=== PATIENT | male | born 1980 | race Caucasian/White ===

== ENCOUNTER 2023-02-04 07:16 | Outpatient (CLI) | payer OTHER, SELFPAY ==
--- NOTE | ~2023-02-04 | US_ITS ---
US right upper quadrant INDICATION: Elevated liver enzymes PROCEDURE: Realtime right upper abdominal ultrasound. COMPARISON: No prior studies for comparison. FINDINGS: The pancreas is normal without focal mass or pancreatic ductal dilation. Liver echotexture is increased, consistent with fatty infiltration. There is normal directional flow in the portal ve in. The gallbladder is normal without stones, gallbladder wall thickening or pericholecystic fluid. Comm on bile duct measures 3 mm. No sonographic Higgins's sign. Spleen is unremarkable measuring 10.8 cm. IMPRESSION: 1: Hepatic steatosis. Reviewed, dictated and finalized at location L. IMPRESSION: 1: Hepatic steatosis.
== END 2023-02-04 07:17 | disposition home or self-care (01) ==
LOC: CHSIMG 07:18
PROVIDERS: PCP Internal Medicine; Visit Provider Internal Medicine
DX: R74.01 Elevation of levels of liver transaminase levels (principal); K76.0 Fatty (change of) liver, not elsewhere classified
CPT/HCPCS: 76705

== ENCOUNTER 2023-02-05 10:52 | Outpatient (RCR) | payer OTHER, SELFPAY ==
--- NOTE | 2023-02-05 11:43 | PTOPEVAL1 ---
Assessment and note entered by JT File, PT Evaluation Information Assessment Status Evaluation Diagnosis cervical radiculopathy C7 L side Onset 02/02/23 Subjective Information patient reports he has had neck pain and tightness on the L side in the past that last for only a few days. however, this time around it is increased, lasting longer, and is now involving his L hand (index and middle finger). he reports no specific injury, and no change in activities. he reports the arm and hand symptoms will feel like tingling/numbness. he reports he has increased pain and symptoms at times with sitting, driving, and letting the arm hang down by his side. he also reports turning the head away from the L side and looking down will cause increased mm tightness and L UE symptoms. he reports looking over his L shoulder is also problematic/ symptomatic. Reported Pain Level Pain Score 1: Self Report Assessment PT Clinical Summary mr. wright is a 42 yo man who presents to skilled PT services for evaluation and treatment of L sided neck and L UE pain. he presents this date with signs and symptoms consistent with referring diagnosis of L C7 cervical radiculopathy. he presents with decreased rom, decreased mm strength , and radicular nerve symptoms in the L UE. he would benefit from continued skilled PT to improve his objective/functional deficits and return to prior level functional activity performance/ quality of life. Plan of Care Interventions Electrical Stimulation,Hot Pack/Cold Pack,Manual Therapy,Mechanical Traction,Neuro Re-education, Patient/Caregiver Educati,Therapeutic Activities, Therapeutic Exercise PT Services Indicated Yes Treatment Frequency and 2x weekly for 10 visits Duration These treatments will address the objective and functional deficits as defined above. The patient will be advanced safely and appropriately in order for the patient to progress towards his/her prior level of function. Additional exercises will be introduced and as well as a comprehensive home exercise program upon discharge, if needed, ?to ensure carryover of functional gains achieved in the clinic. This treatment plan has been reviewed and agreement upon by the patient.
== END 2023-02-19 13:44 | disposition home or self-care (01) ==
LOC: CHSPT 10:52
PROVIDERS: PCP Internal Medicine; Visit Provider Internal Medicine
DX: M54.12 Radiculopathy, cervical region (principal)
CPT/HCPCS: 97012; 97110; 97140; 97150; 97161

== ENCOUNTER 2023-04-28 07:25 | Outpatient (CLI) | payer OTHER, SELFPAY ==
--- NOTE | ~2023-04-28 | US_ITS ---
Limited Abdominal Sonogram: Real-time sonographic imaging of the right upper quadrant and spleen was performed. Clinical History: Fatty liver, thrombocytopenia Findings: The liver appears echogenic, with no evidence of mass lesion or bile duct dilatation. Main portal vein demonstrates normal direction of flow. The gallbladder is well distended, and appears no rmal with no evidence of gallstone or wall thickening. The common bile duct measures 5 mm. The visua lized pancreas, aorta, and IVC are unremarkable. Spleen measures 10 cm in length. Impression: Diffuse fatty infiltration of the liver. Reviewed, dictated and finalized at location M. Impression: Diffuse fatty infiltration of the liver.
== END 2023-04-28 07:26 | disposition home or self-care (01) ==
LOC: CHSIMG 07:26
PROVIDERS: PCP Internal Medicine; Visit Provider Internal Medicine
DX: K76.0 Fatty (change of) liver, not elsewhere classified (principal); D69.59 Other secondary thrombocytopenia
CPT/HCPCS: 76705

== ENCOUNTER 2023-05-10 09:51 | Outpatient (CLI) | payer OTHER, SELFPAY ==
--- NOTE | 2023-05-10 09:57 | EST_ITS ---
Patient Info Name: Jorge Luis Fonseca Age: 42 years : 1980 Gender: Male Ht: 68 in Wt: 199 lbs BSA: 2.11 m2 Heart Rhythm: Sinus Rhythm Technical Quality: Good Exam Date: 05/10/2023 10:28 AM Exam Location: [facility] Patient Status: Outpatient Admit Date: 05/10/2023 Staff Ordering Physician: Edwar Gan MD Attending Provider: Edwar Gan MD Exam Type: CA stress test treadmill Study Info A treadmill exercise stress test was performed. Summary 1. 1. Negative Guero exercise stress test for ischemic ST changes by ECG criteria. 2. 2. Good functional capacity, achieving 10 METs of workload. 3. 3. Appropriate HR response to exercise. 4. 4. Appropriate HR recovery at 1 minute post exercise. 5. 5. No imaging with stress testing. Protocol: Guero Stress ECG Details Stage: REST Duration (min): 1 min : 9 sec Speed (mph): 0.0 Grade (%): 0 HR (bpm): 95 SBP (mmHg): 120 DBP (mmHg): 60 METS: --- Stage: REST Duration (min): 2 min : 29 sec Speed (mph): 0.0 Grade (%): 0 HR (bpm): 112 SBP (mmHg): 120 DBP (mmHg): 60 METS: --- Stage: STAGE 1 Duration (min): 1 min : 0 sec Speed (mph): 1.7 Grade (%): 10 HR (bpm): 127 SBP (mmHg): 120 DBP (mmHg): 60 METS: --- Stage: STAGE 1 Duration (min): 2 min : 0 sec Speed (mph): 1.7 Grade (%): 10 HR (bpm): 140 SBP (mmHg): 120 DBP (mmHg): 60 METS: --- Stage: STAGE 1 Duration (min): 3 min : 0 sec Speed (mph): 1.7 Grade (%): 10 HR (bpm): 143 SBP (mmHg): 145 DBP (mmHg): 63 METS: --- Stage: STAGE 2 Duration (min): 1 min : 0 sec Speed (mph): 2.5 Grade (%): 12 HR (bpm): 146 SBP (mmHg): 145 DBP (mmHg): 63 METS: --- Stage: STAGE 2 Duration (min): 2 min : 0 sec Speed (mph): 2.5 Grade (%): 12 HR (bpm): 151 SBP (mmHg): 145 DBP (mmHg): 63 METS: --- Stage: STAGE 2 Duration (min): 3 min : 0 sec Speed (mph): 2.5 Grade (%): 12 HR (bpm): 157 SBP (mmHg): 173 DBP (mmHg): 74 METS: --- Stage: STAGE 3 Duration (min): 1 min : 0 sec Speed (mph): 3.4 Grade (%): 14 HR (bpm): 163 SBP (mmHg): 173 DBP (mmHg): 74 METS: --- Stage: STAGE 3 Duration (min): 2 min : 0 sec Speed (mph): 3.4 Grade (%): 14 HR (bpm): 171 SBP (mmHg): 173 DBP (mmHg): 74 METS: --- Stage: STAGE 3 Duration (min): 2 min : 0 sec Speed (mph): 3.4 Grade (%): 14 HR (bpm): 171 SBP (mmHg): 173 DBP (mmHg): 74 METS: --- Stage: RECOVERY Duration (min): 0 min : 59 sec Speed (mph): 0.0 Grade (%): 0 HR (bpm): 163 SBP (mmHg): 147 DBP (mmHg): 69 METS: --- Stage: RECOVERY Duration (min): 1 min : 59 sec Speed (mph): 0.0 Grade (%): 0 HR (bpm): 149 SBP (mmHg): 147 DBP (mmHg): 69 METS: --- Stage: RECOVERY Duration (min): 2 min : 59 sec Speed (mph): 0.0 Grade (%): 0 HR (bpm): 135 SBP (mmHg): 147 DBP (m
== END 2023-05-10 09:52 | disposition home or self-care (01) ==
LOC: CHSCARD 09:52
PROVIDERS: PCP Internal Medicine; Visit Provider Internal Medicine
DX: R94.31 Abnormal electrocardiogram [ECG] [EKG] (principal)
CPT/HCPCS: 93017

== ENCOUNTER 2023-10-22 11:23 | Outpatient (CLI) | payer OTHER, SELFPAY ==
--- NOTE | ~2023-10-22 | XR_ITS ---
EXAMINATION: XR_[id number]_CR DATE: 10/22/2023 11:39 INDICATION: Cervical radiculopathy. TECHNIQUE: 3 views of cervical spine were obtained. COMPARISON: None. FINDINGS: There is mild kyphosis of cervical spine. There is 10 degrees dextroscoliosis of cervical s pine. Vertebral body heights are normal. There is mildly decreased disc height at C5-C6 and C6-C7. Th ere is multilevel facet joint osteoarthritis, severe on the left at C5-C6 and C6-C7. There is mild ce ntral canal stenosis at C5-C6 and C6-C7. No prevertebral soft tissue swelling. IMPRESSION: 1. Mild cervical spondylosis. 2. Cervical dextroscoliosis. Reviewed, dictated and finalized at location E. INE MOLDER
== END 2023-10-22 11:24 | disposition home or self-care (01) ==
LOC: CHSIMG 11:24
PROVIDERS: PCP Internal Medicine; Visit Provider Internal Medicine
DX: M54.12 Radiculopathy, cervical region (principal); M43.02 Spondylolysis, cervical region; M41.82 Other forms of scoliosis, cervical region
CPT/HCPCS: 72040

== ENCOUNTER 2023-10-28 10:45 | Outpatient (CLI) | payer OTHER, SELFPAY ==
--- NOTE | ~2023-10-28 | MR_ITS ---
MRI of the cervical spine Clinical History: Radiculopathy Technique: Axial T2-weighted and gradient images, and sagittal T1-weighted, T2-weighted, and STIR juan ges were acquired. Findings: There is no fracture or subluxation of the cervical spine. Vertebral bodies maintain normal height and alignment. No suspicious bone marrow signal abnormality seen. At C2-C3, there is no significant disc bulge or herniation. No spinal canal stenosis, cord compressio n, or neural foraminal narrowing. At C3-C4, there is mild disc osteophyte complex. No spinal canal stenosis, cord compression, or right neural foraminal narrowing. There is mild left neural foraminal narrowing. At C4-C5, there is no disc bulge or herniation. No spinal canal stenosis, cord compression, or right neural foraminal narrowing. There is mild left neural foraminal narrowing with probable left facet ar thropathy. At C5-C6, there is minimal disc osteophyte complex. No spinal canal stenosis, cord compression, or ri ght neural foraminal narrowing. There is minimal left neural foraminal narrowing with left facet arth ropathy. At C6-C7, there is no significant disc bulge or herniation. No spinal canal stenosis, cord compressio n, or definite neural foraminal narrowing. No abnormal signal seen in the spinal cord. Paravertebral soft tissues are unremarkable. Impression: Mild degenerative spondylosis, as above. Reviewed, dictated and finalized at [facility]. F ANALYTICS OFFICER Impression: Mild degenerative spondylosis, as above.
== END 2023-10-28 10:46 | disposition home or self-care (01) ==
LOC: CHSIMG 10:46
PROVIDERS: PCP Internal Medicine; Visit Provider Internal Medicine
DX: M54.12 Radiculopathy, cervical region (principal); M43.02 Spondylolysis, cervical region
CPT/HCPCS: 72141

== ENCOUNTER 2025-07-02 12:55 | Outpatient (RCR) | payer OTHER, SELFPAY ==
--- NOTE | 2025-07-02 13:41 | OPREHPOC ---
Outpatient Therapy Plan of Care This is a Multidisciplinary Plan of Care that may contain components documented by all disciplines (PT, OT, and ST.) PT Problem 1 PT Problem #1 Knowledge Deficit PT Goal 1 Goal / Goal Update independent and compliant with HEP Target Visit 6 PT Problem 2 PT Problem #2 Pain PT Goal 1 Goal / Goal Update decrease pain at worst to 3/10 or less in the L neck Target Visit 12 PT Problem 3 PT Problem #3 Impaired Range of Motion PT Goal 1 Goal / Goal Update L cervical side bending to 30 degrees L cervical rotation to 65 degrees cervical extension to 45 degrees Target Visit 12 PT Problem 4 PT Problem #4 Impaired Functional Mobility PT Goal 1 Goal / Goal Update patient to report no L UE paresthesias NDI to display 10% or less functional deficits Target Visit 12
--- NOTE | 2025-07-02 13:41 | PTOPEVAL1 ---
Assessment and note entered by JT File, PT Evaluation Information Assessment Status Evaluation ICD-10 Condition Codes (PT) Cervicalgia M54.2,Radiculopathy, cervical M54.13 Onset 06/21/25 Subjective Information patient reports he is having a pinched nerve in the neck on the L side. he reports it goes down the back of the arm to his index and long finger. he reports the symptoms are constant. he reports he has tried injected and oral steroids, but with no relief. he reports he has increased pain and symptoms with head movements to the L side and looking up. he reports there is no activity or position that brings him relief at this time. he reports he has an MRI scheduled in 10 days. he reports he has had no falls or traumatic injury. Reported Pain Level Pain Score 9: Self Report Assessment PT Clinical Summary mr. wright is a pleasant 44 yo man who presents to skilled PT services for evaluation and treatment of acute onset cervical spine pain and radiculopathy. he presents with deficits in L side bending, L rotation, and nerve like symptoms into the L UE down to the index and long finger of the L hand. continued skilled PT is indicated to improve his objective/functional deficits and return to his prior level functional activity performance/quality of life. Plan of Care Interventions Electrical Stimulation,Hot Pack/Cold Pack,Manual Therapy,Mechanical Traction,Neuro Re-education, Patient/Caregiver Education,Therapeutic Activities ,Therapeutic Exercise PT Services Indicated Yes Treatment Frequency and 3x weekly for 12 visits Duration These treatments will address the objective and functional deficits as defined above. The patient will be advanced safely and appropriately in order for the patient to progress towards his/her prior level of function. Additional exercises will be introduced and as well as a comprehensive home exercise program upon discharge, if needed, ?to ensure carryover of functional gains achieved in the clinic. This treatment plan has been reviewed and agreement upon by the patient.
== END 2025-07-18 20:00 | disposition home or self-care (01) ==
LOC: CHSPT 12:55
PROVIDERS: PCP Internal Medicine; Visit Provider Internal Medicine
DX: M54.12 Radiculopathy, cervical region (principal); M54.13 Radiculopathy, cervicothoracic region; M54.2 Cervicalgia
CPT/HCPCS: 97012; 97014; 97110; 97140; 97161; G0283

== ENCOUNTER 2025-07-12 15:39 | Outpatient (CLI) | payer OTHER, SELFPAY ==
--- NOTE | ~2025-07-12 | MR_ITS ---
EXAMINATION: MR cervical spine wo con DATE: 07/12/2025 16:57 INDICATION: Cervical radiculopathy. TECHNIQUE: Magnetic resonance imaging (MRI) of the cervical spine was performed without intravenous contrast. Sequences included sagittal T2-weighted FSE, sagittal T2-weighted FS FSE, sagittal T1-weighted FSE, axial MERGE, and axial T2-weighted FSE. COMPARISON: Cervical spine MRI 10/28/2023 FINDINGS: There is kyphosis of cervical spine. Vertebral body heights are normal. There is mildly decreased disc height at C3-C4, C5-C6, and C6-C7. The spinal cord signal intensity is normal. The following disc levels are specifically discussed: C2-C3: The disc does not extend beyond the endplate margin. There is no uncovertebral joint osteoarthritis. There is severe bilateral facet joint osteoarthritis. There is mild left neural foraminal stenosis. There is no central canal stenosis. C3-C4: The disc is bulging. There is mild right and severe left uncovertebral joint osteoarthritis. There is severe bilateral facet joint osteoarthritis. There is mild right and moderate left neural foraminal stenosis. There is mild central canal stenosis. C4-C5: The disc does not extend beyond the endplate margin. There is mild bilateral uncovertebral joint osteoarthritis. There is moderate right and severe left facet joint osteoarthritis. There is mild left neural foraminal stenosis. There is no central canal stenosis. C5-C6: The disc is bulging. There is severe bilateral uncovertebral joint osteoarthritis. There is moderate right and severe left facet joint osteoarthritis. There is mild bilateral neural foraminal stenosis. There is mild central canal stenosis. C6-C7: The disc is bulging and has an annular fissure. There is moderate right and severe left uncovertebral joint osteoarthritis. There is moderate bilateral facet joint osteoarthritis. There is mild right and moderate left neural foraminal stenosis. There is mild central canal stenosis. C7-T1: There is a central protrusion. There is no uncovertebral joint osteoarthritis. There is severe bilateral facet joint osteoarthritis. There is mild bilateral neural foraminal stenosis. There is no central canal stenosis. IMPRESSION: 1. Moderate cervical spondylosis, stable from 10/28/2023. Reviewed, dictated and finalized at location E.
--- OUTSIDE RECORDS SUMMARY | 2025-07-12 17:40 | XMS_ITS | Clinical Summary ---
Author Organization [facility] Lisa Burciaga Address [address] [place] [address] Care Team Providers Care Academy Education Director Name Role Phone Edwar Gan MD Primary Care Provider + Allergies No known active allergies Medications losartan-hydroCH LOROthiazide (HYZAAR) 50-12.5 mg tablet Take 1 Tablet by mouth daily. Active amLODIPine (NORVASC) 10 mg tablet Take 10 mg by mouth daily. Active rosuvastatin (CRESTOR) 10 mg tablet Take 10 mg by mouth daily. Active potassium chloride (KLOR-CON) 10 mEq Extended Release tablet Take 10 mEq by mouth daily with breakfast. Active cyanocobalamin (VITAMIN B-12) 100 mcg tablet Take 100 mcg by mouth daily. Active Active Problems No known active problems Family History Medical History Relation Name Comments Diabetes Father Heart Disease Father Lung Cancer Father Heart Disease Mother No Known Problems Sister No Known Problems Son Relation Name Status Comments Father Alive Mother Alive Sister Alive Son Alive Social History Tobacco Use Types Packs/Day Years Used Date Smoking Tobacco: Never Smokeless Tobacco: Never Sex and Gender Information Value Date Recorded Sex Assigned at Not on file Legal Sex Male 10:57 AM CDT Gender Identity Not on file Sexual Orientation Not on file Last Filed Vital Signs Vital Sign Reading Time Taken Comments Blood Pressure 136/86 06/29/2023 3:25 PM CDT Pulse 88 06/29/2023 3:20 PM CDT Temperature 36.9 C (98.5 F) 06/29/2023 3:20 PM CDT Respiratory Rate 16 06/29/2023 3:20 PM CDT Oxygen Saturation 98% 06/29/2023 3:20 PM CDT Inhaled Oxygen Concentration - - Weight 85.2 kg (187 lb 12.8 oz) 06/29/2023 3:20 PM CDT Height 175.3 cm (5' 9) 06/29/2023 3:20 PM CDT Body Mass Index 27.73 06/29/2023 3:20 PM CDT Plan of Treatment Health Maintenance Due Date Last Done Comments DTAP/TDAP/TD VACCINES (1 - Tdap) 1997 HEPATITIS B VACCINES (1 of 3 - 19+ 3-dose series) 1997 COLORECTAL SCREENING 12/18/2023 Colorectal Cancer Screening 12/18/2023 FIT-DNA Q 3 years 12/18/2023 FIT/FOBT Q 1 year 12/18/2023 Flex Sig/CT Colonography Q 5 years 12/18/2023 INFLUENZA VACCINE (#1) 2025 HPV VACCINES Aged Out No longer eligi ble based on patient's age to complete this topic Insurance [employer] OA Care Teams Academy Education Director Relationship Specialty Start Date End Date Edwar Gan MD [address] [place] [address] PCP - General Internal Medicine 06/29/23
--- OUTSIDE RECORDS SUMMARY | 2025-07-12 17:40 | XMS_ITS | Clinical Summary ---
Author Organization [facility] Address [address] [place] [id number] Care Team Providers Care Industrial Psychology Professor Name Role Phone Unavailable Primary Care Provider Unavailabl e Social History Tobacco Use Types Packs/Day Years Used Date Smoking Tobacco: Never Assessed Sex and Gender Information Value Date Recorded Sex Assigned at Not on file Legal Sex Male 6:45 PM CDT Gender Identity Not on file Sexual Orientation Not on file Plan of Treatment Health Maintenance Due Date Last Done Comments Colorectal Cancer Screening Colonoscopy (10 Years) 1978 Annual Physical 1981 Hepatitis C 1996 DTaP, Tdap and Td Vaccines ( 1 - Tdap) 1997 Hepatitis B Vaccines (1 of 3 - 19+ 3-dose series) 1997 COVID-19 Vaccine (2023-2 5 season) 2025 Influenza Adult (#1) 2025 Meningococcal B Vaccine Aged Out No l onger eligible based on patient's age to complete this topic Meningococcal Vaccine Aged Out No anuja rajendra eligible based on patient's age to complete this topic Pneumococcal Vaccine: Pediat rics (0 to 5 Years) and At-Risk Patients (6 to 49 Years) Aged Out No longer eligible b ased on patient's age to complete this topic RSV Immunizations Under 20 Months Aged Out No longer eligible based on patient's age to complete this topic
== END 2025-07-12 15:40 | disposition home or self-care (01) ==
LOC: CHSIMG 15:40
PROVIDERS: PCP Internal Medicine; Visit Provider Internal Medicine
DX: M54.12 Radiculopathy, cervical region (principal); M43.02 Spondylolysis, cervical region
CPT/HCPCS: 72141